=== PATIENT | male | born 1970 | race Caucasian/White ===

== ENCOUNTER 2022-09-27 14:31 | Outpatient (CLI) | payer OTHER ==
[~2022-09-27 14:31] MED LIST: Magnevist 469MG/ML 20 ML VIAL ONE
== END 2022-09-27 14:32 | disposition home or self-care (01) ==
LOC: CSHMRI 14:31
PROVIDERS: ATTEND Psychiatry & Neurology Neurology
DX: M51.9 Unspecified thoracic, thoracolumbar and lumbosacral intervertebral disc disorder (principal); R20.2 Paresthesia of skin; M47.816 Spondylosis without myelopathy or radiculopathy, lumbar region
CPT/HCPCS: 72158; A9579